=== PATIENT | male | born 1960 | race Caucasian/White ===

== ENCOUNTER 2017-05-20 11:07 | Outpatient (CLI) | payer OTHER ==
[2017-05-20 17:58] LABS: PT - PROTHROMBIN TIME 11.4 secs (9.9-12.6)
[2017-05-20 18:29] LABS: ALBUMIN 4.4 g/dL (3.2-5.5); ALBUMIN/GLOBULIN RATIO 1.3 (1.0-2.2); ALKALINE PHOSPHATASE 117 IU/L (42-121); ALT ALANINE AMINOTRANSFERASE 58 IU/L (10-60); AST ASPARTATE AMINOTRANSFERASE 28 IU/L (10-42); BILIRUBIN,TOTAL 0.8 mg/dL (0.2-1.0); BUN - BLOOD UREA NITROGEN 18 mg/dL (6-20); CALCIUM 9.2 mg/dL (8.5-10.3); CARBON DIOXIDE - CO2 24 mmol/L (21-32); CHLORIDE 104 mmol/L (101-111); CHOL/HDL RATIO 3.9 (<5.0); CHOLESTEROL 136 mg/dL; CREATININE 0.8 mg/dL (0.6-1.2); GFR - MDRD 100 (>89); GLUCOSE 97 mg/dL (70-100); HDL CHOLESTEROL 35 mg/dL; LDL CHOLESTEROL,CALCULATED 73 mg/dL; LDL/HDL RATIO 2.1 (<3.6); SODIUM 136 mmol/L (135-145); TOTAL PROTEIN 7.9 g/dL (6.7-8.2); VLDL CHOLESTEROL 28 mg/dL
== END 2017-05-20 11:08 | disposition home or self-care (01) ==
LOC: LAB.F 11:07
PROVIDERS: ATTEND Physician Assistant
DX: E78.5 Hyperlipidemia, unspecified (principal); I25.10 Atherosclerotic heart disease of native coronary artery without angina pectoris
CPT/HCPCS: 36415; 80053; 80061; 83721; 85610

== ENCOUNTER 2024-02-09 17:34 | Inpatient (IN) ==
--- NOTE | 2024-02-09 18:35 | ED Physician Documentation ---
History of Present Illness Stated complaint Stated Complaint: Chief complaint Chief Complaint: Abd Pain Additonal information Additional information: He had aqua ablation of his prostate on January 17 at [facility]. Starting today he developed bloody urine and clots and eventually started retaining urine and had severe suprapubic pain. On my evaluation the nurse had already placed a Sharif and he was feeling much better. He is on aspirin and Plavix for coronary disease with remote stenting (none in the last year). Meds/Allgy Home Medications Ambulatory Orders Medication Instructions Recorded Confirmed aspirin 81 mg tablet,delayed 81 mg PO QDAY 12/19/23 12/19/23 release (Adult Aspirin Regimen) atorvastatin 40 mg tablet (Lipitor) 40 mg PO QDAY 12/19/23 12/19/23 ciprofloxacin HCl 500 mg tablet 500 mg PO BID #20 tabs 12/19/23 clopidogrel 75 mg tablet 75 mg PO QDAY 12/19/23 12/19/23 diltiazem HCl 120 mg 120 mg PO QAM 12/19/23 12/19/23 capsule,extended release 24 hr (Cardizem CD) evolocumab 140 mg/mL subcutaneous 140 mg subcut Q2W 12/19/23 12/19/23 pen injector (Repatha SureClick) lisinopril 10 mg tablet 10 mg PO QDAY 12/19/23 12/19/23 tamsulosin 0.4 mg capsule (Flomax) 0.4 mg PO QDAY 12/19/23 12/19/23 Allergies Allergies Allergy/AdvReac Type Severity Reaction Status Date / Time Penicillins Allergy Hives Verified 02/09/24 17:51 bees Allergy Hives Uncoded 12/19/23 18:34 coffee Allergy Hives Uncoded 12/19/23 18:34 [facility] Social History Social History Smoking Status: Former smoker If you are a former smoker, when did you quit? (Date/Year): 2023 Relationship: Do you feel safe in your home environment?: Yes Suffered physical, verbal, emotional, or financial abuse?: No Exam Constitutional normal general appearance and no apparent distress Gastrointestinal abdomen normal to inspection, abdomen soft to palpation, nontender to palpation and nontender to percussion Genitourinary Sharif in place with very bloody urine in the bag, about 6 to 800 mL Neurology GCS 15 Results Vitals Vitals: Vital Signs - 24 hr 02/09/24 17:51 02/09/24 19:52 Temperature 36.8 C Temperature Source Tympanic Pulse Rate 110 H Respiratory Rate 24 Blood Pressure 157/100 H O2 Saturation 96 O2 Source Room air Pain Intensity 8 0 Oxygen O2 Source Room air Labs Labs: Laboratory Tests 02/09/24 02/09/24 18:30 18:32 WBC 24.0 H RBC 3.83 L Hgb 13.1 L Hct 39.1 L MCV 102.1 H MCH 34.2 H MCHC 33.5 RDW 14.5 Plt Count 242 MPV 9.9 Neut # (Auto) 21.0 H Lymph # (Auto) 2.2 [place] # (Auto) 0.5 Eos # (Auto) 0.0 Baso # (Auto) 0.1 Absolute Nucleated RBC 0.00 Band Neuts % (Manual) Not Reportable Abnorm Lymph % (Manual) Not Reportable Nucleated RBC % 0.0 Neutrophils # (Manual) Not Reportable Lymphocytes # (Manual) Not Reportable Monocytes # (Manual) Not Reportable Eosinophils # (Manual) Not Reportable Basophils # (Manual) Not Reportable Differential Comment MANUAL=AUTO DIFF Platelet Estimate NORMAL (130-450,000) Platelet Morphology NORMAL APPEARANCE RBC Morph Micro Appear 1+ MACROCYTOSIS Sodium 138 Potassium 3.5 Chloride 103 Carbon Dioxide 15 L Anion Gap 20.0 H BUN 26 H Creatinine 2.1 H Estimated GFR (MDRD) 32 L Glucose 255 H Calcium 9.5 Total Bilirubin 0.5 AST 18 ALT 31 Alkaline Phosphatase 119 Total Protein 7.9 Albumin 4.5 Globulin 3.4 Albumin/Globulin Ratio 1.3 Lipase 19 Urine Color RED/BLOODY Urine Clarity BLOODY Urine pH 7.0 Ur Specific [place] 1.025 Urine Protein >=300 H Urine Glucose (UA) 250 H Urine Ketones NEGATIVE Urine Occult Blood LARGE H Urine Nitrite Urine Bilirubin NEGATIVE Urine Urobilinogen 0.2 (NORMAL) Ur Leukocyte Esterase NEGATIVE Urine RBC TNTC H Urine WBC 0-3 Ur Squamous Epith Cells NONE SEEN Urine Bacteria None Seen Ur Microscopic Review INDICATED Urine Culture Comments NOT INDICATED PD Medical Decision Making ED course ED course: He presents with clots and hematuria and retention several weeks after aqua ablation procedure. He has a white count of 24,000 which I cannot explain, he does not appear toxic and his urinalysis is just bloody without signs of infection. His BUN is up as is his creatinine a bit. We do not have prior values. We did CBI for quite some time and on bedside ultrasound still has a large clot volume. Required frequent hand irrigation. I did discuss the case with Dr. Hale who recommended admission to the hospital with n.p.o. after midnight and cystoscopy tomorrow. Spoke with the hospitalist nurse practitioner for same at 8:40 PM. The patient and family are counseled as to the diagnosis and need for admission. This document was made in part using voice recognition software, while efforts are made to proofread this document, sound alike an grammatical errors may occur. Discharge Plan Discharge Patient Disposition: ED Place in Observation Condition: Stable Clinical Impression: Urinary retention, Gross hematuria, Leukocytosis Prescriptions: No Action ciprofloxacin HCl 500 mg tablet 500 mg PO BID Qty: 20 0RF aspirin [Adult Aspirin Regimen] 81 mg tablet,delayed release (DR/EC) 81 mg PO QDAY atorvastatin [Lipitor] 40 mg tablet 40 mg PO QDAY lisinopril 10 mg tablet 10 mg PO QDAY clopidogrel 75 mg tablet 75 mg PO QDAY diltiazem HCl [Cardizem CD] 120 mg capsule,extended release 24hr 120 mg PO QAM tamsulosin [Flomax] 0.4 mg capsule 0.4 mg PO QDAY Repatha SureClick 140 mg/mL pen injector 140 mg subcut Q2W Print Language: Mongolian Stand Alone Forms: PCP List
[2024-02-09 18:45] LABS: BASOPHILS # (AUTO) 0.1 10^3/uL (0.0-0.1); BASOPHILS % (AUTO) 0.2 %; HCT - HEMATOCRIT 39.1 % (42.0-52.0); HGB - HEMOGLOBIN 13.1 g/dL (14.0-18.0); LYMPHOCYTES # (AUTO) 2.2 10^3/uL (1.5-3.5); LYMPHOCYTES % (AUTO) 9.1 %; MEAN CORPUSCULAR HEMOGLOBIN 34.2 pg (27.0-31.0); MEAN CORPUSCULAR HGB CONC 33.5 g/dL (32.0-36.0); MEAN CORPUSCULAR VOLUME 102.1 fL (80.0-94.0); MEAN PLATELET VOLUME 9.9 fL (7.4-11.4); MONOCYTES # (AUTO) 0.5 10^3/uL (0.0-1.0); MONOCYTES % (AUTO) 2.1 %; NEUTROPHILS % (AUTO) 87.5 %; PLT - PLATELET COUNT 242 10^3/uL (130-450); RED BLOOD COUNT 3.83 10^6/uL (4.70-6.10); RED CELL DISTRIBUTION WIDTH 14.5 % (12.0-15.0)
[2024-02-09 18:58] LABS: BILIRUBIN,URINE NEGATIVE (NEGATIVE); GLUCOSE, URINE (UA) 250 mg/dL (NEGATIVE); KETONES,URINE (UA) NEGATIVE (NEGATIVE); LEUKOCYTE ESTERASE, URINE NEGATIVE (NEGATIVE); OCCULT BLOOD,URINE LARGE (NEGATIVE); PROTEIN,URINE >=300 mg/dL (NEGATIVE); UROBILINOGEN,URINE 0.2 (NORMAL) E.U./dL (NORMAL)
[2024-02-09 19:02] LABS: CLARITY,URINE BLOODY (CLEAR)
[2024-02-09 19:04] LABS: BACTERIA,URINE None Seen /HPF (None Seen); RBC,URINE TNTC /HPF (0-5); SQUAMOUS EPITHELIAL CELL,UR NONE SEEN (<= Few); WBC,URINE 0-3 /HPF (0-3)
[2024-02-09 19:10] LABS: ALBUMIN 4.5 g/dL (3.2-5.5); ALBUMIN/GLOBULIN RATIO 1.3 (1.0-2.2); BILIRUBIN,TOTAL 0.5 mg/dL (0.2-1.0); CALCIUM 9.5 mg/dL (8.5-10.3); CREATININE 2.1 mg/dL (0.6-1.3); PLATELET ESTIMATE, MANUAL NORMAL (130-450,000) (NORMAL); PLATELET MORPHOLOGY NORMAL APPEARANCE (NORMAL); POTASSIUM 3.5 mmol/L (3.5-4.5); RBC MORPHOLOGY (MULTIPLE) 1+ MACROCYTOSIS (NORMAL); TOTAL PROTEIN 7.9 g/dL (6.4-8.9)
[2024-02-09 19:11] LABS: DIFFERENTIAL COMMENT MANUAL=AUTO DIFF
[2024-02-09] MEDS: HYDROmorphone 1 MG/ML CARPUJECT IVP STA (19:52)
--- NOTE | 2024-02-09 20:46 | PREOP HISTORY & PHYSICAL ---
Surgical History & Physical Chief Complaint/HPI Chief Complaint: hematuria History of Present Illness: Chalo is a 61-year-old male with history of urinary retention. He states that [facility] [place] [facility]. He ended up following up with a urologist at [facility]. He had a catheter in place for about 6 weeks before an aqua ablation January 16. His catheter was removed subsequently. He did have some hematuria afterwards but did well. 3 days ago he restarted his Plavix. Yesterday he developed significant hematuria with clots. He was unable to urinate. He went to the [facility] ER where a three-way catheter was placed. He was able to irrigate relatively clear but a large clot was seen on ultrasound at bedside. He intermittently obstructed roughly every 30 minutes. His hemoglobin on admission was 13.1. He was admitted overnight with continuous bladder irrigation again requiring manual irrigation roughly every 30 minutes Home Meds and Allergies Active Medications Generic Name Dose Route Start Last Admin Trade Name Freq PRN Reason Stop Dose Admin Acetaminophen 650 mg 02/09/24 21:59 Acetaminophen 325 Mg Tablet PO Q4HR PRN Pain 1 to 4, or Fever Hydromorphone HCl 0.5 mg 02/09/24 21:59 Hydromorphone 0.5 Mg/0.5 Ml Syringe IVP Q2H PRN Severe Pain (Level 7-10) Lactated Ringer's 1,000 mls @ 125 mls/hr 02/10/24 05:00 02/10/24 04:53 Lr IV 125 mls/hr .Q8H ERNESTINA Administration Ondansetron HCl 4 mg 02/09/24 21:59 Ondansetron Odt 4 Mg Tablet TL Q6HR PRN Nausea / Vomiting Ondansetron HCl 4 mg 02/09/24 21:59 02/09/24 23:48 Ondansetron 4 Mg/2 Ml Vial IVP 4 mg Q6HR PRN Administration Nausea / Vomiting Sodium Chloride 10 ml 02/09/24 21:59 02/10/24 04:54 Sodium Chloride Flush 0.9% 10 Ml Syringe IVP 10 ml PRN PRN Administration NEEDED PER PROVIDER ORDERS Sodium Chloride 10 ml 02/10/24 01:00 02/09/24 23:48 Sodium Chloride Flush 0.9% 10 Ml Syringe IVP 10 ml 0100,0900,1700 ERNESTINA Administration aspirin 81 mg tablet,delayed release (Adult Aspirin Regimen) 81 mg PO QDAY 12/19/23 atorvastatin 40 mg tablet (Lipitor) 40 mg PO QDAY 12/19/23 ciprofloxacin HCl 500 mg tablet 500 mg PO BID #20 tabs 12/19/23 clopidogrel 75 mg tablet 75 mg PO QDAY 12/19/23 diltiazem HCl 120 mg capsule,extended release 24 hr (Cardizem CD) 120 mg PO QAM 12/19/23 evolocumab 140 mg/mL subcutaneous pen injector (Repatha SureClick) 140 mg subcut Q2W 12/19/23 lisinopril 10 mg tablet 10 mg PO QDAY 12/19/23 tamsulosin 0.4 mg capsule (Flomax) 0.4 mg PO QDAY 12/19/23 Allergies Allergy/AdvReac Type Severity Reaction Status Date / Time Penicillins Allergy Hives Verified 02/09/24 17:51 bees Allergy Hives Uncoded 12/19/23 18:34 coffee Allergy Hives Uncoded 12/19/23 18:34 Vital Signs O2 Saturation: 96 Patient Review Patient Review Pertinent Tests Reviewed [facility] Social History Social History Smoking Status: Former smoker If you are a former smoker, when did you quit? (Date/Year): 11/12/2023 Number of Years Smoked: 46 How many cigarettes a day do you smoke? (20 cigarettes=1 Pk): 20 Second hand tobacco smoke exposure: No Do you dip or chew tobacco?: No Do you vape?: No Patient requests smoking cessation consult: No Initiate information on smoking cessation: No Relationship: Level: Independent Do you feel safe in your home environment?: Yes Suffered physical, verbal, emotional, or financial abuse?: No Substance Use: denies use Exam Exam NAD RRR CTA b/l [address] with clear effluent Assessment & Plan Assessment & Plan Assessment & Plan: 63yo M with severe gross hematuria s/p aquablation 01/[facility] at [facility]. On plavix. On CBI but continued clot issues -Hold all blood thinners -N.p.o. and IV fluids -Add-on for cystoscopy, clot evacuation, fulguration of bleeding areas. We discussed the risk, benefits, alternatives of the procedure. Specific risks of infection, bleeding, injury to adjacent structures, need for additional procedures, failure of therapy, need for long-term catheterization were discussed Patient states understanding and consents to the above plan
--- NOTE | 2024-02-09 21:28 | HISTORY & PHYSICAL EXAMINATION ---
Chief Complaint Chief Complaint Chief Complaint: Urinary retention, Hematuria History of Present Illness Admitted From Admitted From:: Home History Obtained From Records Reviewed: EMR History obtained from: Patient interview Exam Limitations: None History of Present Illness HPI Comment/Other: 63-year-old male with PMH significant for CAD status post several Stents, last of which was several years ago. He has had issues with urinary retention for the past 2 years. He had a aqua ablation 01/18/2024 at [facility], and has had intermittent hematuria since then. This last round of hematuria was sudden onset today, and he presented to the ED. He had been on aspirin and Plavix for his history of CAD, but this has been held for his ablation In the ED, Bedside ultrasound was performed which showed large volume of clots in his bladder. He was aggressively and irrigated, and three-way Sharif was placed for continuous bladder irrigation. Urology was consulted by ER provider, who recommended observation in the hospital and cystoscopy in the morning. Meds/Allgy Home Medications Ambulatory Orders Medication Instructions Recorded Confirmed aspirin 81 mg tablet,delayed 81 mg PO QDAY 12/19/23 12/19/23 release (Adult Aspirin Regimen) atorvastatin 40 mg tablet (Lipitor) 40 mg PO QDAY 12/19/23 12/19/23 ciprofloxacin HCl 500 mg tablet 500 mg PO BID #20 tabs 12/19/23 clopidogrel 75 mg tablet 75 mg PO QDAY 12/19/23 12/19/23 diltiazem HCl 120 mg 120 mg PO QAM 12/19/23 12/19/23 capsule,extended release 24 hr (Cardizem CD) evolocumab 140 mg/mL subcutaneous 140 mg subcut Q2W 12/19/23 12/19/23 pen injector (Hyun Yang) lisinopril 10 mg tablet 10 mg PO QDAY 12/19/23 12/19/23 tamsulosin 0.4 mg capsule (Flomax) 0.4 mg PO QDAY 12/19/23 12/19/23 Allergies Allergies Allergy/AdvReac Type Severity Reaction Status Date / Time Penicillins Allergy Hives Verified 02/09/24 17:51 bees Allergy Hives Uncoded 12/19/23 18:34 coffee Allergy Hives Uncoded 12/19/23 18:34 PFSH Social History Social History Smoking Status: Former smoker If you are a former smoker, when did you quit? (Date/Year): 2023 Relationship: Do you feel safe in your home environment?: Yes Suffered physical, verbal, emotional, or financial abuse?: No Review of Systems Status of ROS: 10 or more systems reviewed and unremarkable except as noted in history and below Constitutional Denies: Fever or Chills Cardiovascular Denies: Irregular heart rate, chest pain, palpitations or shortness of breath with exertion (Reports history of exercise-induced asthma, hasn't needed his inhaler) Respiratory Denies: Shortness of breath (Reports history of exercise-induced asthma, hasn't needed his inhaler) Gastrointestinal Denies: Abdominal pain Genitourinary Reports: Blood in urine Neurological Denies: General weakness Exam Constitutional normal general appearance and no apparent distress HENMT normocephalic and head/scalp atraumatic Eyes PERRL Neck/C-Spine visual inspection normal Lymph no lymphadenopathy noted Chest inspection of chest normal Respiratory breath sounds equal bilaterally Cardiovascular normal heart rate noted and regular rhythm noted Gastrointestinal abdomen normal to inspection and abdomen soft to palpation Genitourinary Large bore three-way catheter in place, bleeding around the catheter. Dark bloody urine Extremities normal to inspection Neurology GCS 15 Psychiatry oriented x3 Skin skin color normal Conclusion/Plan Problem List (1) Gross hematuria: Plan: Urology consulted by ER provider Maintain CBI, target pink Sharif output Added Dilaudid 0.5 mg IV as needed for pain with irrigation Manual irrigation as needed N.p.o. after midnight for cystoscopy If he becomes hemodynamically unstable, plan for blood transfusion and consideration of TXA H&H every 8 hours Type and screen, prep 1 unit (2) Leukocytosis: Plan: Likely reactionary Plan Placed in observation Full code His is his surrogate decision-maker Lab Results Lab results reviewed: Yes 02/09/24 18:32 02/09/24 18:32 Core Measures Anticipated LOS I expect patient to be DC'd or transferred within 96 hours.: Yes DVT/VTE - Prophylaxis VTE/DVT Device ordered at admit?: Yes
[2024-02-09] MEDS ORDERED: ONDANSETRON ODT 4 MG TABLET TL PRN (21:59)
[2024-02-09] MEDS ORDERED: HYDROmorphone 0.5 MG/0.5 ML SYRINGE IVP PRN (21:59)
[2024-02-09] MEDS ORDERED: ACETAMINOPHEN 325 MG TABLET PO PRN (21:59)
[2024-02-09 22:23] LABS: HCT - HEMATOCRIT 33.2 % (42.0-52.0); HGB - HEMOGLOBIN 11.5 g/dL (14.0-18.0)
[2024-02-09] MEDS: ONDANSETRON 4 MG/2 ML VIAL IVP PRN (23:48)
[2024-02-09] MEDS: SODIUM CHLORIDE FLUSH 0.9% 10 ML SYRINGE IVP SCH (23:48)
[2024-02-10] MEDS: CALCIUM CARBONATE CHEW 500 MG TABLET PO ONE (02:50)
--- NOTE | 2024-02-10 04:40 | PROVIDER PROGRESS NOTE ---
Management Recruiter Note Management Recruiter Note Management Recruiter Note: per rn - "Patient admitted for gross hematuria. Patient currently has bladder irrigation. Patient's blood pressureis 91/54, 102, 16 on right arm and 80/58, 98 on left arm. Charge has notified lab for am labs and awaiting for [employer] Lens Technician tto arrive. Patient is currently saline locked. Would you like any fluids ordered at this time. Will monitor for hemoglobin as well." start lr @ 125/hr
[2024-02-10 04:43] LABS: BASOPHILS % (AUTO) 0.2 %; HCT - HEMATOCRIT 30.3 % (42.0-52.0); HGB - HEMOGLOBIN 10.1 g/dL (14.0-18.0); LYMPHOCYTES % (AUTO) 9.1 %; MEAN CORPUSCULAR HGB CONC 33.3 g/dL (32.0-36.0); MEAN PLATELET VOLUME 10.1 fL (7.4-11.4); MONOCYTES % (AUTO) 5.1 %; NEUTROPHILS % (AUTO) 84.7 %; PLT - PLATELET COUNT 274 10^3/uL (130-450); RED BLOOD COUNT 3.06 10^6/uL (4.70-6.10); RED CELL DISTRIBUTION WIDTH 14.5 % (12.0-15.0); WHITE BLOOD COUNT 25.7 x10^3/uL (4.8-10.8)
[2024-02-10 04:50] LABS: ABNORMAL LYMPHS % (MANUAL) 0 %; BAND NEUTROPHILS % (MANUAL) 0 %
[2024-02-10 04:51] LABS: CALCIUM 9.2 mg/dL (8.5-10.3); CREATININE 3.2 mg/dL (0.6-1.3); POTASSIUM 4.5 mmol/L (3.5-4.5)
[2024-02-10] MEDS: LACTATED RINGERS 1,000 ML IV SCH ×2 (04:53→14:17)
[2024-02-10] MEDS: SODIUM CHLORIDE FLUSH 0.9% 10 ML SYRINGE IVP PRN (04:54)
[2024-02-10 05:12] LABS: DIFFERENTIAL COMMENT MANUAL DIFFERENTIAL; LYMPHOCYTES # (MANUAL) 3.6 10^3/uL (1.5-3.5); LYMPHOCYTES % (MANUAL) 14 %; NEUTROPHILS # (MANUAL) 21.1 10^3/uL (1.5-6.6); PLATELET ESTIMATE, MANUAL NORMAL (130-450,000) (NORMAL); PLATELET MORPHOLOGY NORMAL APPEARANCE (NORMAL); RBC MORPHOLOGY (MULTIPLE) NORMAL APPEARANCE (NORMAL); WBC MORPHOLOGY (MULTIPLE) NORMAL APPEARANCE (NORMAL)
[2024-02-10 07:40] LABS: HCT - HEMATOCRIT 27.7 % (42.0-52.0); HGB - HEMOGLOBIN 9.8 g/dL (14.0-18.0)
[2024-02-10] MEDS ORDERED: LACTATED RINGERS 1,000 ML IV SCH (10:00)
[2024-02-10] MEDS ORDERED: LIDOCAINE 2% URO-JET 5 ML SYRINGE UR ONE (10:28)
--- NOTE | 2024-02-10 10:33 | PHARMACY PROGRESS NOTE ---
Best Possible Medication History Admit Date and Time: 02/09/242123 Home Medications Medication Instructions Recorded Confirmed Type aspirin 81 mg tablet,delayed 81 mg PO QDAY 12/19/23 02/10/24 History release (Adult Aspirin Regimen) atorvastatin 40 mg tablet (Lipitor) 40 mg PO QDAY 12/19/23 02/10/24 History clopidogrel 75 mg tablet 75 mg PO QDAY 12/19/23 02/10/24 History diltiazem HCl 120 mg 120 mg PO QAM 12/19/23 02/10/24 History capsule,extended release 24 hr (Cardizem CD) evolocumab 140 mg/mL subcutaneous 140 mg subcut Q2W 12/19/23 02/10/24 History pen injector (Repatha SureMjick) lisinopril 10 mg tablet 10 mg PO QDAY 12/19/23 02/10/24 History tamsulosin 0.4 mg capsule (Flomax) 0.4 mg PO QDAY 12/19/23 02/10/24 History Processed by: Pharmacy Medications reviewed in ED?: No Medication History completed: Yes Patient Interview: Completed Secondary Source(s): Prescription bottles, Pharmacy records and Insurance records [facility] Statement: As the person ultimately responsible for medication therapy, providers are able to order a medication from an existing home medication list in [facility] via the "Reconcile Routine" prior to Confirmation of that medication by network diagnostic support specialist. Such practice is discouraged except when the physician, in their clinical judgment, deems that a medical need exists for a medication without regard to previous use.
--- NOTE | 2024-02-10 11:00 | ANESTHESIA PROCEDURE NOTE ---
Pre-Anesthesia VS, & Labs Diagnosis Surgical Diagnosis:: hematuria Procedure Procedure: cystoscopy Vitals Vital Signs: Temp Pulse Resp BP Pulse Ox 36.6 C 93 18 103/65 94 02/10/24 08:02 02/10/24 08:02 02/10/24 08:02 02/10/24 08:02 02/10/24 08:02 Height (in): 6 ft Weight (kg): 95.5 kg Body Mass Index: 28.5 BMI Classification: Overweight NPO NPO: >8 hours Lab Results Current Lab Results: Laboratory Tests 02/10/24 07:24: Hgb 9.8 L, Hct 27.7 L 02/10/24 04:28: WBC 25.7 H, RBC 3.06 L, Hgb 10.1 L, Hct 30.3 L, MCV 99.0 H, MCH 33.0 H, MCHC 33.3, RDW 14.5, Plt Count 274, MPV 10.1, Neut # (Auto) Not Reportable, Lymph # (Auto) Not Reportable, [place] # (Auto) Not Reportable, Eos # (Auto) Not Reportable, Baso # (Auto) Not Reportable, Absolute Nucleated RBC Not Reportable, Total Counted 100, Band Neuts % (Manual) 0, Abnorm Lymph % (Manual) 0, Nucleated RBC % Not Reportable, Neutrophils # (Manual) 21.1 H, Lymphocytes # (Manual) 3.6 H, Monocytes # (Manual) 1.0, Eosinophils # (Manual) 0.0, Basophils # (Manual) 0.0, Differential Comment MANUAL DIFFERENTIAL, WBC Morphology NORMAL APPEARANCE, Platelet Estimate NORMAL (130-450,000), Platelet Morphology NORMAL APPEARANCE, RBC Morph Micro Appear NORMAL APPEARANCE, Sodium 134 L, Potassium 4.5, Chloride 102, Carbon Dioxide 19 L, Anion Gap 13.0, BUN 38 H, Creatinine 3.2 H, Estimated GFR (MDRD) 20 L, Glucose 174 H, Calcium 9.2 02/09/24 22:18: Hgb 11.5 L, Hct 33.2 L, Blood Type Recheck O POSITIVE 02/09/24 18:32: WBC 24.0 H, RBC 3.83 L, Hgb 13.1 L, Hct 39.1 L, MCV 102.1 H, MCH 34.2 H, MCHC 33.5, RDW 14.5, Plt Count 242, MPV 9.9, Neut # (Auto) 21.0 H, Lymph # (Auto) 2.2, [place] # (Auto) 0.5, Eos # (Auto) 0.0, Baso # (Auto) 0.1, Absolute Nucleated RBC 0.00, Band Neuts % (Manual) Not Reportable, Abnorm Lymph % (Manual) Not Reportable, Nucleated RBC % 0.0, Neutrophils # (Manual) Not Reportable, Lymphocytes # (Manual) Not Reportable, Monocytes # (Manual) Not Reportable, Eosinophils # (Manual) Not Reportable, Basophils # (Manual) Not Reportable, Differential Comment MANUAL=AUTO DIFF, Platelet Estimate NORMAL (130-450,000), Platelet Morphology NORMAL APPEARANCE, RBC Morph Micro Appear 1+ MACROCYTOSIS, Sodium 138, Potassium 3.5, Chloride 103, Carbon Dioxide 15 L, A nion Gap 20.0 H, BUN 26 H, Creatinine 2.1 H, Estimated GFR (MDRD) 32 L, Glucose 255 H, Calcium 9.5, Total Bilirubin 0.5, AST 18, ALT 31, Alkaline Phosphatase 119, Total Protein 7.9, Albumin 4.5, Globulin 3.4, Albumin/Globulin Ratio 1.3, Lipase 19, Blood Type O POSITIVE, Antibody Screen NEGATIVE, Crossmatch IS Only See Detail Lab results reviewed: Yes 02/10/24 07:24 02/10/24 04:28 Meds/Allgy Home Medications Ambulatory Orders Medication Instructions Recorded Confirmed aspirin 81 mg tablet,delayed 81 mg PO QDAY 12/19/23 02/10/24 release (Adult Aspirin Regimen) atorvastatin 40 mg tablet (Lipitor) 40 mg PO QDAY 12/19/23 02/10/24 clopidogrel 75 mg tablet 75 mg PO QDAY 12/19/23 02/10/24 diltiazem HCl 120 mg 120 mg PO QAM 12/19/23 02/10/24 capsule,extended release 24 hr (Cardizem CD) evolocumab 140 mg/mL subcutaneous 140 mg subcut Q2W 12/19/23 02/10/24 pen injector (Hyun Yang) lisinopril 10 mg tablet 10 mg PO QDAY 12/19/23 02/10/24 tamsulosin 0.4 mg capsule (Flomax) 0.4 mg PO QDAY 12/19/23 02/10/24 Allergies Allergies Allergy/AdvReac Type Severity Reaction Status Date / Time Penicillins Allergy Hives Verified 02/09/24 17:51 bees Allergy Hives Uncoded 12/19/23 18:34 coffee Allergy Hives Uncoded 12/19/23 18:34 [facility] Medical History Medical History (Updated 02/10/24 @ 10:59 by Zoey Mays CRNA) Hyperlipemia Presence of stent in coronary artery in patient with coronary artery disease Surgical History Surgical History (Updated 02/10/24 @ 10:59 by Zoey Mays CRNA) S/P TURP Social History Social History Smoking Status: Former smoker If you are a former smoker, when did you quit? (Date/Year): 11/12/2023 Number of Years Smoked: 46 How many cigarettes a day do you smoke? (20 cigarettes=1 Pk): 20 Second hand tobacco smoke exposure: No Do you dip or chew tobacco?: No Do you vape?: No Patient requests smoking cessation consult: No Initiate information on smoking cessation: No Relationship: Level: Independent Do you feel safe in your home environment?: Yes Suffered physical, verbal, emotional, or financial abuse?: No Substance Use: denies use Anesthesia Exam (Expanded) Exam General: Alert, Oriented x3 and Cooperative Dental: WNL Mouth Openin Fingerbreadth Neck Mobility: Normal Mallampati classification: II Thyromental Distance: 4-6 cm Mental/Cognitive Status: Alert/Oriented X3 and Normal for patient Plan Plan Anesthesia Type: General Consent for Procedure(s) Verified and Reviewed: Yes Code Status: Attempt Resuscitation ASA Classification ASA classification: 3-Severe systemic disease Is this case an emergency?: Yes
[2024-02-10] MEDS ORDERED: PROPOFOL 200 MG/20 ML VIAL IVP ONE (11:02)
[2024-02-10] MEDS ORDERED: fentaNYL 100 MCG/2 ML VIAL ONE ×2 (11:02→11:41)
[2024-02-10] MEDS ORDERED: PHENYLEPHRINE HCL 0.5 MG/5 ML AMPULE ONE (11:30)
[2024-02-10] MEDS ORDERED: ePHEDrine 50 MG/ML VIAL IVP ONE (11:36)
[2024-02-10] MEDS ORDERED: PHENYLEPHRINE 10 MG/ML VIAL ONE (11:39)
--- NOTE | 2024-02-10 11:42 | PROVIDER PROGRESS NOTE ---
Subjective Prog Note Date Prog Note Date: 02/10/24 Subjective Pt reports feeling: Improved Current Medications Current Medications Current Medications: Current Medications Generic Name Dose Route Start Last Admin Trade Name Jesus Manuel PRN Reason Stop Dose Admin Acetaminophen 650 mg 02/09/24 21:59 Acetaminophen 325 Mg Tablet PO Q4HR PRN Pain 1 to 4, or Fever Hydromorphone HCl 0.5 mg 02/09/24 21:59 Hydromorphone 0.5 Mg/0.5 Ml Syringe IVP Q2H PRN Severe Pain (Level 7-10) Lactated Ringer's 1,000 mls @ 125 mls/hr 02/10/24 05:00 02/10/24 04:53 Lr IV 125 mls/hr .Q8H ERNESTINA Administration Ondansetron HCl 4 mg 02/09/24 21:59 Ondansetron Odt 4 Mg Tablet TL Q6HR PRN Nausea / Vomiting Ondansetron HCl 4 mg 02/09/24 21:59 02/09/24 23:48 Ondansetron 4 Mg/2 Ml Vial IVP 4 mg Q6HR PRN Administration Nausea / Vomiting Sodium Chloride 10 ml 02/09/24 21:59 02/10/24 04:54 Sodium Chloride Flush 0.9% 10 Ml Syringe IVP 10 ml PRN PRN Administration NEEDED PER PROVIDER ORDERS Sodium Chloride 10 ml 02/10/24 01:00 02/10/24 09:21 Sodium Chloride Flush 0.9% 10 Ml Syringe IVP Not Given 0100,0900,1700 ERNESTINA Objective Vital Signs/Intake & Output Reviewed Vital Signs: Yes Vital Signs: Vital Signs x48h Temp Pulse Resp BP BP Pulse Ox 02/10/24 08:02 36.6 C 93 18 103/65 94 02/10/24 04:59 104 H 18 102/60 95 02/10/24 04:00 98 91/54 L 80/58 L 02/10/24 03:51 36.5 C 111 H 24 87/49 L 97 Intake & Output: Intake & Output 02/07/24 02/08/24 02/09/24 02/10/24 23:59 23:59 23:59 23:59 Intake Total 5240 / 5240 58785 / 12019 Output Total 6125 / 6125 54040 / 89116 Balance -885 / -885 -2775 / -2775 Weight (kg) 95.5 kg 95.5 kg Objective General Appearance: positive No acute distress and Alert Eyes Bilateral: positive Normal inspection ENT: positive No signs of dehydration Neck: positive No JVD Respiratory: positive Chest non-tender and Breath sounds nml Cardiovascular: positive Regular rate & rhythm Abdomen: positive Non-tender Skin: positive Color nml Extremities: positive Non-tender Neurologic/Psychiatric: positive Oriented x3 Lab Results 02/10/24 07:24 02/10/24 04:28 Other Labs: Lab Results x24hrs 02/10/24 02/10/24 02/09/24 Range/Units 07:24 04:28 22:18 WBC 25.7 H (4.8-10.8) x10^3/uL RBC 3.06 L (4.70-6.10) 10^6/uL Hgb 9.8 L 10.1 L 11.5 L (14.0-18.0) g/dL Hct 27.7 L 30.3 L 33.2 L (42.0-52.0) % MCV 99.0 H (80.0-94.0) fL MCH 33.0 H (27.0-31.0) pg MCHC 33.3 (32.0-36.0) g/dL RDW 14.5 (12.0-15.0) % Plt Count 274 (130-450) 10^3/uL MPV 10.1 (7.4-11.4) fL Neut # (Auto) Not Reportable (1.5-6.6) 10^3/uL Lymph # (Auto) Not Reportable (1.5-3.5) 10^3/uL [place] # (Auto) Not Reportable (0.0-1.0) 10^3/uL Eos # (Auto) Not Reportable (0.0-0.7) 10^3/uL Baso # (Auto) Not Reportable (0.0-0.1) 10^3/uL Absolute Nucleated RBC Not Reportable x10^3/uL Total Counted 100 Band Neuts % (Manual) 0 Abnorm Lymph % (Manual) 0 Nucleated RBC % Not Reportable /100WBC Neutrophils # (Manual) 21.1 H Lymphocytes # (Manual) 3.6 H Monocytes # (Manual) 1.0 Eosinophils # (Manual) 0.0 Basophils # (Manual) 0.0 Differential Comment MANUAL DIFFERENTIAL WBC Morphology NORMAL APPEARANCE (NORMAL) Platelet Estimate NORMAL (130-450,000) (NORMAL) Platelet Morphology NORMAL APPEARANCE (NORMAL) RBC Morph Micro Appear NORMAL APPEARANCE (NORMAL) Sodium 134 L (135-145) mmol/L Potassium 4.5 (3.5-4.5) mmol/L Chloride 102 (101-111) mmol/L Carbon Dioxide 19 L (21-32) mmol/L Anion Gap 13.0 (6-13) BUN 38 H (6-20) mg/dL Creatinine 3.2 H (0.6-1.3) mg/dL Estimated GFR (MDRD) 20 L (>89) Glucose 174 H (74-104) mg/dL Calcium 9.2 (8.5-10.3) mg/dL Total Bilirubin (0.2-1.0) mg/dL AST (10-42) IU/L ALT (10-60) IU/L Alkaline Phosphatase (42-121) IU/L Total Protein (6.4-8.9) g/dL Albumin (3.2-5.5) g/dL Globulin (2.1-4.2) g/dL Albumin/Globulin Ratio (1.0-2.2) Lipase (11-82) U/L Urine Color Urine Clarity (CLEAR) Urine pH (5.0-7.5) PH Ur Specific [place] (1.002-1.030) Urine Protein (NEGATIVE) mg/dL Urine Glucose (UA) (NEGATIVE) mg/dL Urine Ketones (NEGATIVE) mg/dL Urine Occult Blood (NEGATIVE) Urine Nitrite (NEGATIVE) Urine Bilirubin (NEGATIVE) Urine Urobilinogen (NORMAL) E.U./dL Ur Leukocyte Esterase (NEGATIVE) Urine RBC (0-5) /HPF Urine WBC (0-3) /HPF Ur Squamous Epith Cells (<= Few) Urine Bacteria (None Seen) /HPF Ur Microscopic Review Urine Culture Comments Blood Type Blood Type Recheck O POSITIVE Antibody Screen Crossmatch IS Only 02/09/24 02/09/24 Range/Units 18:32 18:30 WBC 24.0 H (4.8-10.8) x10^3/uL RBC 3.83 L (4.70-6.10) 10^6/uL Hgb 13.1 L (14.0-18.0) g/dL Hct 39.1 L (42.0-52.0) % MCV 102.1 H (80.0-94.0) fL MCH 34.2 H (27.0-31.0) pg MCHC 33.5 (32.0-36.0) g/dL RDW 14.5 (12.0-15.0) % Plt Count 242 (130-450) 10^3/uL MPV 9.9 (7.4-11.4) fL Neut # (Auto) 21.0 H (1.5-6.6) 10^3/uL Lymph # (Auto) 2.2 (1.5-3.5) 10^3/uL [place] # (Auto) 0.5 (0.0-1.0) 10^3/uL Eos # (Auto) 0.0 (0.0-0.7) 10^3/uL Baso # (Auto) 0.1 (0.0-0.1) 10^3/uL Absolute Nucleated RBC 0.00 x10^3/uL Total Counted Band Neuts % (Manual) Not Reportable Abnorm Lymph % (Manual) Not Reportable Nucleated RBC % 0.0 /100WBC Neutrophils # (Manual) Not Reportable Lymphocytes # (Manual) Not Reportable Monocytes # (Manual) Not Reportable Eosinophils # (Manual) Not Reportable Basophils # (Manual) Not Reportable Differential Comment MANUAL=AUTO DIFF WBC Morphology (NORMAL) Platelet Estimate NORMAL (130-450,000) (NORMAL) Platelet Morphology NORMAL APPEARANCE (NORMAL) RBC Morph Micro Appear 1+ MACROCYTOSIS (NORMAL) Sodium 138 (135-145) mmol/L Potassium 3.5 (3.5-4.5) mmol/L Chloride 103 (101-111) mmol/L Carbon Dioxide 15 L (21-32) mmol/L Anion Gap 20.0 H (6-13) BUN 26 H (6-20) mg/dL Creatinine 2.1 H (0.6-1.3) mg/dL Estimated GFR (MDRD) 32 L (>89) Glucose 255 H (74-104) mg/dL Calcium 9.5 (8.5-10.3) mg/dL Total Bilirubin 0.5 (0.2-1.0) mg/dL AST 18 (10-42) IU/L ALT 31 (10-60) IU/L Alkaline Phosphatase 119 (42-121) IU/L Total Protein 7.9 (6.4-8.9) g/dL Albumin 4.5 (3.2-5.5) g/dL Globulin 3.4 (2.1-4.2) g/dL Albumin/Globulin Ratio 1.3 (1.0-2.2) Lipase 19 (11-82) U/L Urine Color RED/BLOODY Urine Clarity BLOODY (CLEAR) Urine pH 7.0 (5.0-7.5) PH Ur Specific [place] 1.025 (1.002-1.030) Urine Protein >=300 H (NEGATIVE) mg/dL Urine Glucose (UA) 250 H (NEGATIVE) mg/dL Urine Ketones NEGATIVE (NEGATIVE) mg/dL Urine Occult Blood LARGE H (NEGATIVE) Urine Nitrite (NEGATIVE) Urine Bilirubin NEGATIVE (NEGATIVE) Urine Urobilinogen 0.2 (NORMAL) (NORMAL) E.U./dL Ur Leukocyte Esterase NEGATIVE (NEGATIVE) Urine RBC TNTC H (0-5) /HPF Urine WBC 0-3 (0-3) /HPF Ur Squamous Epith Cells NONE SEEN (<= Few) Urine Bacteria None Seen (None Seen) /HPF Ur Microscopic Review INDICATED Urine Culture Comments NOT INDICATED Blood Type O POSITIVE Blood Type Recheck Antibody Screen NEGATIVE Crossmatch IS Only See Detail Assessment/Plan Problem List (1) Gross hematuria: Impression: Urology following CBI CBI much clearer today than it was last night In OR now for cystoscopy H&H every 8 1 unit PRBCs is being held (2) LISET (acute kidney injury): Impression: Likely postrenal from large clot burden in bladder Manage hematuria as above Bicarb on chemistry is improving, now 19 Bicarb deficit of 190 mL Will give 1 bag of IV bicarb (3) Leukocytosis: Impression: Likely reactionary CBC in a.m.
[2024-02-10 12:04] LABS: HCT - HEMATOCRIT 25.1 % (42.0-52.0); HGB - HEMOGLOBIN 8.5 g/dL (14.0-18.0)
--- NOTE | 2024-02-10 12:10 | OPERATIVE REPORT ---
Operative Report General Admit Date: 02/09/24 Procedure Data: Operation Date: 02/10/24 10:45 Proposed Procedures p Cystoscopy, clot evacuation, fulguration(Not Applicable) - Javier Hale MD Pre-Op Diagnosis: hematuria Anesthesia Type General Case Staff Anesthesia Provider: Zoey Mays Times Procedure Start: 02/10/24 11:35 Time out: 02/10/24 11:34 Pre-Op Diagnosis: hematuria Post Op Diagnosis: hematuria Procedure Note Findings: 500 cc of old clot irrigated out Complications: none Other Other Information/Narrative: After informed consent was obtained the patient was brought to the OR and laid in the supine position. He was anesthetized per anesthesia protocols. His Sharif catheter was removed and then he was prepped draped in the usual sterile fashion in the dorsolithotomy position. A formal timeout was performed reconfirmed the patient, procedure and laterality. A 26 [place] resectoscope was advanced per urethra and into the bladder. He was noted to have a large amount of clot in the bladder. Using an [id number] evacuator we evacuated out about 500 cc of dark clot. We reinspected the bladder and showed no injury or concern. His prostate fossa had diffuse oozing and using loop electrocautery and the bipolar setting we cauterized the diffuse areas to stop bleeding. Hemostasis was excellent. We then placed a Uro-Jet and a 22 [place] three-way Sharif catheter. 50 cc was placed in the balloon. We then placed him on gentle traction. He was left on continuous bladder irrigation During the case close to the end he was noted to have continual hypotension and so a stat H&H was sent. He was then brought to the PACU without further incident. We will follow-up on his H&H and consider transfusion as needed. He will return to the medical floor today. He will likely go home tomorrow with a catheter in place. He will hold his blood thinners. I recommend empiric antibiotics for a few days
[2024-02-10] MEDS ORDERED: HYDROmorphone 0.5 MG/0.5 ML SYRINGE IVP PRN (12:35)
[2024-02-10] MEDS ORDERED: ATROPINE ABBOJECT 1 MG/10 ML SYRINGE IVP PRN (12:35)
[2024-02-10] MEDS ORDERED: ONDANSETRON 4 MG/2 ML VIAL IVP PRN (12:35)
[2024-02-10] MEDS ORDERED: NALOXONE 0.4 MG/ML VIAL IVP PRN (12:35)
[2024-02-10] MEDS ORDERED: fentaNYL 100 MCG/2 ML VIAL IVP PRN (12:35)
[2024-02-10] MEDS ORDERED: MORPHINE 2 MG/ML CARPUJECT IVP PRN (12:35)
[2024-02-10] MEDS: CIPROFLOXACIN 400 MG/200 ML 400 MG/200 ML BAG IV ONE (12:55)
--- NOTE | 2024-02-10 14:11 | ANESTHESIA POST OP EVALUATION ---
Anesthesia Post Eval Post Anesthesia Eval Vitals: Last Vital Signs Temp 36.6 C 02/10/24 13:15 Pulse 96 02/10/24 14:00 Resp 16 02/10/24 14:00 BP 107/64 02/10/24 14:00 Pulse Ox 92 02/10/24 14:00 CV Function Including HR & BP: Stable Pain Control: Satisfactory Nausea & Vomiting: Negative Mental Status: Baseline Respiratory Status: Airway Patent Hydration Status: Satisfactory Anesthesia Complications: None
[2024-02-10] MEDS ORDERED: SODIUM BICARBONATE 150 MEQ in DEXTROSE 5% 1,000 ML IV SCH (15:00)
[2024-02-10] MEDS ORDERED: DEXTROSE 5% 1,000 ML IV ONE (16:07)
[2024-02-10] MEDS: DEXTROSE 5% IV SCH (17:20)
[2024-02-10] MEDS: SODIUM BICARBONATE IV SCH (17:20)
[2024-02-10 22:12] LABS: HCT - HEMATOCRIT 22.5 % (42.0-52.0); HGB - HEMOGLOBIN 7.8 g/dL (14.0-18.0)
[2024-02-11 06:00] LABS: BASOPHILS % (AUTO) 0.2 %; EOSINOPHILS # (AUTO) 0.1 10^3/uL (0.0-0.7); EOSINOPHILS % (AUTO) 0.7 %; HCT - HEMATOCRIT 22.3 % (42.0-52.0); HGB - HEMOGLOBIN 7.6 g/dL (14.0-18.0); LYMPHOCYTES # (AUTO) 2.6 10^3/uL (1.5-3.5); LYMPHOCYTES % (AUTO) 18.1 %; MEAN CORPUSCULAR HEMOGLOBIN 33.9 pg (27.0-31.0); MEAN CORPUSCULAR HGB CONC 34.1 g/dL (32.0-36.0); MEAN CORPUSCULAR VOLUME 99.6 fL (80.0-94.0); MONOCYTES # (AUTO) 0.9 10^3/uL (0.0-1.0); MONOCYTES % (AUTO) 6.1 %; NEUTROPHILS # (AUTO) 10.6 10^3/uL (1.5-6.6); NEUTROPHILS % (AUTO) 74.5 %; PLT - PLATELET COUNT 184 10^3/uL (130-450); RED BLOOD COUNT 2.24 10^6/uL (4.70-6.10); RED CELL DISTRIBUTION WIDTH 14.7 % (12.0-15.0); WHITE BLOOD COUNT 14.2 x10^3/uL (4.8-10.8)
[2024-02-11 06:20] LABS: CALCIUM 8.3 mg/dL (8.5-10.3); CREATININE 1.4 mg/dL (0.6-1.3); POTASSIUM 4.2 mmol/L (3.5-4.5)
[2024-02-11 09:03] LABS: ESTIMATED AVERAGE GLUCOSE 103 mg/dL (70-100); HEMOGLOBIN A1c% 5.2 % (4.27-6.07)
--- NOTE | 2024-02-11 09:50 | PROVIDER PROGRESS NOTE ---
Subjective Subjective Pt reports feeling: Improved Subjective: NAD. Doing very well after procedure. Hg stable 7.6 Current Medications Current Medications Current Medications: Current Medications Generic Name Dose Route Start Last Admin Trade Name Freq PRN Reason Stop Dose Admin Acetaminophen 650 mg 02/09/24 21:59 Acetaminophen 325 Mg Tablet PO Q4HR PRN Pain 1 to 4, or Fever Hydromorphone HCl 0.5 mg 02/09/24 21:59 Hydromorphone 0.5 Mg/0.5 Ml Syringe IVP Q2H PRN Severe Pain (Level 7-10) Ondansetron HCl 4 mg 02/09/24 21:59 Ondansetron Odt 4 Mg Tablet TL Q6HR PRN Nausea / Vomiting Ondansetron HCl 4 mg 02/09/24 21:59 02/09/24 23:48 Ondansetron 4 Mg/2 Ml Vial IVP 4 mg Q6HR PRN Administration Nausea / Vomiting Sodium Chloride 10 ml 02/09/24 21:59 02/10/24 04:54 Sodium Chloride Flush 0.9% 10 Ml Syringe IVP 10 ml PRN PRN Administration NEEDED PER PROVIDER ORDERS Sodium Chloride 10 ml 02/10/24 01:00 02/11/24 00:07 Sodium Chloride Flush 0.9% 10 Ml Syringe IVP 10 ml 0100,0900,1700 ERNESTINA Administration Objective Vital Signs/Intake & Output Reviewed Vital Signs: Yes Vital Signs: Vital Signs x48h Temp Pulse Resp BP Pulse Ox 02/11/24 06:44 36.6 C 88 18 105/59 L 97 Intake & Output: Intake & Output 02/08/24 02/09/24 02/10/24 02/11/24 23:59 23:59 23:59 23:59 Intake Total 5240 / 5240 10521 / 52867 1550 / 1550 Output Total 6125 / 6125 16297 / 16601 2550 / 2550 Balance -885 / -885 294 / 294 -1000 / -1000 Weight (kg) 95.5 kg 95.5 kg Objective General Appearance: positive No acute distress (NAD. abdomen soft nt nd, reese crystal clear off CBI) Lab Results 02/11/24 05:23 02/11/24 05:23 Other Labs: Lab Results x24hrs 02/11/24 02/10/24 02/10/24 Range/Units 05:23 22:02 16:58 WBC 14.2 H (4.8-10.8) x10^3/uL RBC 2.24 L (4.70-6.10) 10^6/uL Hgb 7.6 L 7.8 L (14.0-18.0) g/dL Hct 22.3 L 22.5 L (42.0-52.0) % MCV 99.6 H (80.0-94.0) fL MCH 33.9 H (27.0-31.0) pg MCHC 34.1 (32.0-36.0) g/dL RDW 14.7 (12.0-15.0) % Plt Count 184 (130-450) 10^3/uL MPV 10.0 (7.4-11.4) fL Neut # (Auto) 10.6 H (1.5-6.6) 10^3/uL Lymph # (Auto) 2.6 (1.5-3.5) 10^3/uL [place] # (Auto) 0.9 (0.0-1.0) 10^3/uL Eos # (Auto) 0.1 (0.0-0.7) 10^3/uL Baso # (Auto) 0.0 (0.0-0.1) 10^3/uL Absolute Nucleated RBC 0.00 x10^3/uL Nucleated RBC % 0.0 /100WBC Sodium 135 (135-145) mmol/L Potassium 4.2 (3.5-4.5) mmol/L Chloride 102 (101-111) mmol/L Carbon Dioxide 28 (21-32) mmol/L Anion Gap 5.0 L (6-13) BUN 28 H (6-20) mg/dL Creatinine 1.4 H (0.6-1.3) mg/dL Estimated GFR (MDRD) 51 L (>89) Glucose 125 H (74-104) mg/dL POC Whole Bld Glucose 115 (70-100) mg/dL Estimat Average Glucose 103 H (70-100) mg/dL Hemoglobin A1c % 5.2 (4.27-6.07) % Calcium 8.3 L (8.5-10.3) mg/dL 02/10/24 Range/Units 11:55 WBC (4.8-10.8) x10^3/uL RBC (4.70-6.10) 10^6/uL Hgb 8.5 L (14.0-18.0) g/dL Hct 25.1 L (42.0-52.0) % MCV (80.0-94.0) fL MCH (27.0-31.0) pg MCHC (32.0-36.0) g/dL RDW (12.0-15.0) % Plt Count (130-450) 10^3/uL MPV (7.4-11.4) fL Neut # (Auto) (1.5-6.6) 10^3/uL Lymph # (Auto) (1.5-3.5) 10^3/uL [place] # (Auto) (0.0-1.0) 10^3/uL Eos # (Auto) (0.0-0.7) 10^3/uL Baso # (Auto) (0.0-0.1) 10^3/uL Absolute Nucleated RBC x10^3/uL Nucleated RBC % /100WBC Sodium (135-145) mmol/L Potassium (3.5-4.5) mmol/L Chloride (101-111) mmol/L Carbon Dioxide (21-32) mmol/L Anion Gap (6-13) BUN (6-20) mg/dL Creatinine (0.6-1.3) mg/dL Estimated GFR (MDRD) (>89) Glucose (74-104) mg/dL POC Whole Bld Glucose (70-100) mg/dL Estimat Average Glucose (70-100) mg/dL Hemoglobin A1c % (4.27-6.07) % Calcium (8.5-10.3) mg/dL Assessment/Plan Problem List (1) Gross hematuria: Impression: resolved I recommend discharge with catheter in place until followup with his OSH urologist. No asa/plavix for now Should go home with empiric abx, I recommend ciprofloxacin 500mg BID x 5days ensure good bowel regimen If any transfusion occurs, recommend keep overnight for monitoring (2) LISET (acute kidney injury): Impression: resolving
[2024-02-11 12:15] VITALS: BP 131/86; TEMP 98.8; O2SAT 97
[2024-02-11] MEDS: TAMSULOSIN 0.4 MG CAPSULE PO SCH (12:18)
[2024-02-11] MEDS: lisinopriL 5 MG TABLET PO SCH (12:18)
[2024-02-11 14:18] LABS: HCT - HEMATOCRIT 22.4 % (42.0-52.0); HGB - HEMOGLOBIN 7.5 g/dL (14.0-18.0)
--- NOTE | 2024-02-11 14:55 | Discharge Summary ---
"Discharge Summary Admit Date: 02/09/24 Discharge Date: 02/11/24 Discharging Provider: Brandon Brennan NP Primary Care Provider: Does not know his primary care provider Code Status: Attempt Resuscitation DIAGNOSES Admission Diagnoses: Gross hematuria Leukocytosis Discharge Diagnoses with Status of Each Condition: Gross hematuriaresolved Leukocytosisresolving Hypertensionchronic HPI History of Present Illness: 63-year-old male with PMH significant for CAD status post several Stents, last of which was several years ago. He has had issues with urinary retention for the past 2 years. He had a aqua ablation 01/18/2024 at [facility], and has had intermittent hematuria since then. This last round of hematuria was sudden onset today, and he presented to the ED. He had been on aspirin and Plavix for his history of CAD, but this has been held for his ablation In the ED, Bedside ultrasound was performed which showed large volume of clots in his bladder. He was aggressively and irrigated, and three-way Sharif was placed for continuous bladder irrigation. Urology was consulted by ER provider, who recommended observation in the hospital and cystoscopy in the morning. CONSULTS | PROCEDURES Consultations: Urology Procedures: Cystoscopy with removal of blood clots HOSPITAL COURSE Hospital Course: He was admitted to the hospital and started on continuous bladder irrigation. He underwent cystoscopy by Dr. Hale on 02/10/2024, with removal of blood clots. Today, his urine is clear. Urology stopped his continuous bladder irrigation this morning, and recommended that he follow-up with his urologist. I am holding his aspirin and Plavix for now, will defer restarting this to his primary care physician/Urologist/rampman ALLERGIES Allergies Allergy/AdvReac Type Severity Reaction Status Date / Time Penicillins Allergy Hives Verified 02/09/24 17:51 bees Allergy Hives Uncoded 12/19/23 18:34 coffee Allergy Hives Uncoded 12/19/23 18:34 MEDICATIONS Ambulatory Orders Medication Instructions Recorded Confirmed atorvastatin 40 mg tablet (Lipitor) 40 mg PO QDAY 12/19/23 02/10/24 diltiazem HCl 120 mg 120 mg PO QAM 12/19/23 02/10/24 capsule,extended release 24 hr (Cardizem CD) evolocumab 140 mg/mL subcutaneous 140 mg subcut Q2W 12/19/23 02/10/24 pen injector (Repatha SureClick) lisinopril 10 mg tablet 10 mg PO QDAY 12/19/23 02/10/24 tamsulosin 0.4 mg capsule (Flomax) 0.4 mg PO QDAY 12/19/23 02/10/24 PHYSICAL EXAM AT DISCHARGE General Appearance: positive No acute distress and Alert Eyes Bilateral: positive Normal inspection and PERRL ENT: positive No signs of dehydration Neck: positive No JVD Respiratory: positive Chest non-tender and No respiratory distress Cardiovascular: positive Regular rate & rhythm and No murmur Peripheral Pulses: positive 2+ Abdomen: positive Non-tender Skin: positive Color nml Extremities: positive Non-tender Neurologic/Psychiatric: positive Oriented x3 LABS 02/11/24 14:13 02/11/24 05:23 FOLLOW UP Follow Up: With PCP, urology TIME SPENT Time Spent in Discharge (Minutes): 25 Discharge Plan Discharge Patient Disposition: Home, Self Care Condition: Stable Medically Cleared Date:: 02/11/24 Prescriptions: Continued atorvastatin [Lipitor] 40 mg tablet 40 mg PO QDAY lisinopril 10 mg tablet 10 mg PO QDAY diltiazem HCl [Cardizem CD] 120 mg capsule,extended release 24hr 120 mg PO QAM tamsulosin [Flomax] 0.4 mg capsule 0.4 mg PO QDAY Repatha SureClick 140 mg/mL pen injector 140 mg subcut Q2W Discontinued aspirin [Adult Aspirin Regimen] 81 mg tablet,delayed release (DR/EC) 81 mg PO QDAY clopidogrel 75 mg tablet 75 mg PO QDAY Activity Restrictions: No Restrictions Diet: Regular Health Concerns: You are a 63-year-old male who has had urology issues for a while now. You presented to the ER with bleeding and clots in your bladder. You were admitted to the hospital for this gross hematuria and placed on continuous bladder irrigation. You underwent cystoscopy by Dr. Hale, and clots were removed. Today, your urine is clear, and your hemoglobin is stabilizing. I am sending you home to follow-up with your urologist to determine further care for this. I would like for you to stop your aspirin and Plavix until we are sure that this is resolved. You endorsed to me that you are very healthy and active, and I would like for you to remain that way. Follow-up with your urologist as already scheduled, and follow-up with your primary care physician within 2 weeks. If you start to experience bright red blood in your urine again, Please contact your urologist or consider presenting to the emergency department Print Language: Mongolian Patient Instructions: Surgery Anesthesia After Stand Alone Forms: PCP List"
[2024-02-11] MEDS ORDERED: ATORVASTATIN 40 MG TABLET PO SCH (21:00)
== END 2024-02-11 15:51 | disposition home or self-care (01) | DRG 664 ==
LOC: MS2 17:34 → ED 17:34 → MS2 22:09
PROVIDERS: ADMIT Nurse Practitioner Acute Care; ATTEND Nurse Practitioner Acute Care
DX: I25.10 Atherosclerotic heart disease of native coronary artery without angina pectoris; N17.9 Acute kidney failure, unspecified; I10 Essential (primary) hypertension; Z79.82 Long term (current) use of aspirin; Z87.891 Personal history of nicotine dependence; Z95.5 Presence of coronary angioplasty implant and graft; D72.829 Elevated white blood cell count, unspecified; R31.0 Gross hematuria; Z79.02 Long term (current) use of antithrombotics/antiplatelets; Z79.899 Other long term (current) drug therapy